=== PATIENT | female | born 1995 | race Caucasian/White ===

== ENCOUNTER 2022-06-05 04:55 | Observation (INO) | payer BC, SELFPAY ==
[2022-06-05] MEDS ORDERED: Promethazine HCl 25 MG/ML VIAL IM PRN (05:09)
[2022-06-05] MEDS ORDERED: Misoprostol 200 MCG TAB PR PRN (05:09)
[2022-06-05] MEDS ORDERED: Methylergonovine 0.2 MG/ML VIAL IM PRN ×2 (05:09→08:38)
[2022-06-05] MEDS ORDERED: Ondansetron PF 4 MG/2 ML Vial IVP PRN (05:09)
[2022-06-05] MEDS ORDERED: Butorphanol Tartrate 1 MG/ML VIAL SLOW IVP PRN (05:09)
[2022-06-05] MEDS ORDERED: Carboprost 250 MCG/ML AMP IM PRN (05:09)
[2022-06-05] MEDS ORDERED: Acetaminophen 500 MG TAB PO PRN (05:09)
[2022-06-05] MEDS ORDERED: Tranexamic Acid 1,000 MG in Sodium Chloride 0.9% 250 ML 250 ML IVPB PRN (05:09)
[2022-06-05] MEDS ORDERED: Diphenoxylate HCl/Atropine Tablet PO PRN ×2 (05:09)
[2022-06-05] MEDS ORDERED: hydrALAZINE 20 MG/ML VIAL SLOW IVP PRN ×2 (05:09→08:38)
[2022-06-05] MEDS ORDERED: Lidocaine 1% (PF) 30 ML VIAL ONE (05:28)
[2022-06-05] MEDS ORDERED: Butorphanol Tartrate 1 MG/ML VIAL ONE (05:38)
[2022-06-05] MEDS ORDERED: Lactated Ringer's 1,000 ML IV SCH (06:00)
[2022-06-05] MEDS ORDERED: NS w/ Oxytocin 30 units 500 ML IV SCH ×2 (06:00→08:38)
[2022-06-05 06:01] LABS: Hemoglobin 11.2 g/dL (12.0-15.5); Mean Corpuscular HGB CONC 34.8 g/dL (32.0-36.0); Mean Corpuscular Hemoglobin 31.6 pg (27.0-33.0); Mean Platelet Volume 10.2 fl (7.4-10.4); Platelet Count 191 10x3/uL (150-450); RBC Distribution Width 12.5 % (11.5-14.5); Red Blood Cell (RBC) Count 3.54 10x6/uL (3.90-5.03); White Blood Cell (WBC) Count 26.6 10x3/uL (3.5-10.5)
[2022-06-05 06:31] VITALS: BMI 34.4
[2022-06-05 06:31] LABS: INR-International Normal Ratio 0.9
[2022-06-05 06:32] LABS: HBSAg Index 0.12 S/CO (0-0.99); Hep B Surf Ag Non-Reactive S/CO (NonReactive)
[2022-06-05 06:34] LABS: Syphilis Antibody Nonreactive (Nonreactive); Syphilis Antibody Index 0.07 S/CO (<1.00 Non-Reactive)
[2022-06-05 07:45] LABS: Prothrombin Time 10.1 sec (9.5-12.1)
[2022-06-05 07:46] LABS: D-Dimer Test 2.1 mg/L FEU (0.19-0.50); PTT 26.3 sec (22.0-33.0)
[2022-06-05] MEDS ORDERED: Bisacodyl 10 MG SUPP PR PRN (08:38)
[2022-06-05] MEDS ORDERED: Misoprostol 200 MCG TAB VAG PRN (08:38)
[2022-06-05] MEDS ORDERED: Benzocaine-Menthol 82.5 ML CAN TOP PRN (08:38)
[2022-06-05] MEDS ORDERED: Lanolin Ointment 7 GM TUBE TOP PRN (08:38)
[2022-06-05] MEDS ORDERED: HYDROcodone/Acetaminophen 5/325 mg Tablet PO PRN ×2 (08:38)
[2022-06-05] MEDS ORDERED: Milk Of Magnesia 30 ML UDCUP PO PRN (08:38)
[2022-06-05] MEDS ORDERED: Boostrix 0.5 ML (Tdap) VIAL (>/=7 yrs of age) IM ONE (08:38)
[2022-06-05] MEDS ORDERED: Preparation H Ointment 28 GM TUBE PR PRN (08:38)
[2022-06-05] MEDS ORDERED: Ibuprofen 800 MG TAB PO SCH (08:45)
[2022-06-05] MEDS ORDERED: Ferrous Sulfate 325 MG TAB PO SCH ×2 (08:45→17:00)
[2022-06-05] MEDS ORDERED: Docusate 100 MG CAP PO SCH (09:00)
== END 2022-06-05 17:40 | disposition home or self-care (01) ==
LOC: INTOOBSV 04:55 → CSHLD 04:55
PROVIDERS: ADMIT Obstetrics & Gynecology; ATTEND Obstetrics & Gynecology
DX: O72.1 Other immediate postpartum hemorrhage (principal); O90.1 Disruption of perineal obstetric wound
CPT/HCPCS: 36415; 36430; 51701; 85027; 85049; 85300; 85362; 85379; 85384; 85610; 85730; 86780; 86850; 86900; 86901; 87340; G0378; P9016